=== PATIENT | female | born 1995 | race Caucasian/White ===

== ENCOUNTER 2018-05-01 17:33 | Outpatient (CLI) | END 2018-05-01 20:13 | disposition home or self-care (01) ==

== ENCOUNTER 2018-05-06 19:33 | Outpatient (CLI) | END 2018-05-07 00:20 | disposition home or self-care (01) ==

== ENCOUNTER 2018-05-09 11:43 | Outpatient (CLI) | END 2018-05-09 14:12 | disposition home or self-care (01) ==

== ENCOUNTER 2018-05-11 05:35 | Inpatient (IN) | END 2018-05-13 14:00 | disposition home or self-care (01) | DRG 807 ==